=== PATIENT | male | born 1940 | race Caucasian/White ===

== ENCOUNTER → 2017-02-21 | Outpatient (CLI) | payer MEDICARE ==
--- NOTE | 2017-02-21 13:12 | RAD ---
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 The second toe is subluxed dorsally and held in dorsiflexion at the MTP joint level. There is plantar flexion of that toe at the PIP joint level. No acute fracture or bone destruction is identified. Deformity of the third metatarsal head appears old. Deformity of the fourth toe at the PIP joint level is probably due to old trauma. Moderate degenerative changes are present at the midfoot level. A large inferior calcaneal spur is present. IMPRESSION: 1. Chronic findings as described above. 2. No acute bony abnormality is detected.
== END | disposition home or self-care (01) ==
LOC: DXRAD 11:46
PROVIDERS: ATTEND Podiatrist Foot & Ankle Surgery
DX: L97.519 Non-pressure chronic ulcer of other part of right foot with unspecified severity (principal); M19.071 Primary osteoarthritis, right ankle and foot; M77.31 Calcaneal spur, right foot; Z89.419 Acquired absence of unspecified great toe
CPT/HCPCS: 73630